=== PATIENT | male | born 2000 | race Caucasian/White ===

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

== ENCOUNTER 2021-05-04 14:00 | Emergency (ER) | payer OTHER ==
[2021-05-04] MEDS ORDERED: BACTRIM DS TAB1 EACH PO (14:29)
== END 2021-05-04 14:34 | disposition home or self-care (01) ==
LOC: ER1 14:00
DX: L03.114 Cellulitis of left upper limb (principal); F17.200 Nicotine dependence, unspecified, uncomplicated
CPT/HCPCS: 99283